=== PATIENT | female | born 1995 | race Caucasian/White ===

== ENCOUNTER 2019-03-18 10:14 | Outpatient (CLI) | payer OTHER | END 2019-03-18 10:17 | disposition home or self-care (01) | LOC: SONOGRAMA 10:14 | DX: N94.0 Mittelschmerz (principal); R10.2 Pelvic and perineal pain; N94.89 Other specified conditions associated with female genital organs and menstrual cycle ==

== ENCOUNTER 2019-11-01 06:08 | Inpatient (IN) | payer OTHER ==
[~2019-11-01] VITALS: Ht 160 cm; Wt 60.3 kg
== END 2019-11-03 13:44 | disposition home or self-care (01) | DRG 807 ==
LOC: LDR 06:08 → OB/GYN 17:18
PROVIDERS: ADMIT Obstetrics & Gynecology
PROC: 10E0XZZ Delivery of Products of Conception, External Approach (ICD-10-PCS; principal; 2019-11-01)
PROC: 0HQ9XZZ Repair Perineum Skin, External Approach (ICD-10-PCS; 2019-11-01)
PROC: 3E0P7VZ Introduction of Hormone into Female Reproductive, Via Natural or Artificial Opening (ICD-10-PCS; 2019-11-01)
PROC: 3E033VJ Introduction of Other Hormone into Peripheral Vein, Percutaneous Approach (ICD-10-PCS; 2019-11-01)
PROC: 10907ZC Drainage of Amniotic Fluid, Therapeutic from Products of Conception, Via Natural or Artificial Opening (ICD-10-PCS; 2019-11-01)
PROC: 4A1HXCZ Monitoring of Products of Conception, Cardiac Rate, External Approach (ICD-10-PCS; 2019-11-01)
DX: O70.0 First degree perineal laceration during delivery (principal); Z37.0 Single live birth; Z3A.39 39 weeks gestation of pregnancy

== ENCOUNTER 2021-11-24 23:17 | Emergency (ER) | payer OTHER ==
[~2021-11-24] VITALS: Ht 162.6 cm; Wt 55.3 kg
[2021-11-25] MEDS ORDERED: PEPCID AC20 MG PO (03:45)
[2021-11-25] MEDS ORDERED: ACETAMINOPHEN650 M2 PO (03:45)
== END 2021-11-25 04:51 | disposition home or self-care (01) ==
LOC: ER 23:17
DX: O98.512 Other viral diseases complicating pregnancy, second trimester (principal); U07.1 COVID-19; Z3A.24 24 weeks gestation of pregnancy